=== PATIENT | female | born 1960 | race African-American/Black ===

== ENCOUNTER 2021-12-07 06:04 | Emergency (ER) | payer BC ==
[~2021-12-07] VITALS: Ht 154.9 cm; Wt 51.0 kg
[2021-12-07] MEDS: ONDANSETRON HCL 4MG/2ML INJ IV STA ×2 (07:08→09:01)
[2021-12-07] MEDS: SODIUM CHLORIDE 0.9% 1,000 ML IV ONE (07:08)
[2021-12-07] MEDS: KETOROLAC 30MG/ML VIAL IV STA (07:08)
[2021-12-07 07:20] LABS: BASOPHILS % 0.3 % (0.0-2.0); HEMOGLOBIN. 16.7 g/dL (12.0-16.0); LYMPHOCYTES % 9.9 % (20.0-50.0); MEAN CORPUSCULAR HEMOGLOBIN 34.4 pg (28.0-32.0); MEAN PLATELET VOLUME 7.8 fl (7.4-10.4); MONOCYTES % 5.3 % (2.0-8.0); NEUTROPHILS % 84.5 % (40.0-76.0); PLATELET 219 x1000/uL (130-400); RED BLOOD CELL COUNT 4.85 mill/uL (4.2-5.4); RED CELL DISTRIBUTION WIDTH 14.1 % (11.6-14.6)
[2021-12-07 07:28] LABS: CHLORIDE 98 mEq/L (98-107)
[2021-12-07] MEDS: AMLODIPINE 5MG TABLET PO ONE (08:22)
[2021-12-07] MEDS: ONDANSETRON HCL 4MG/2ML INJ IV ONE (08:55)
[2021-12-07] MEDS: METRONIDAZOLE 500 MG PREMIX 100 ML IV ONE (09:34)
[2021-12-07] MEDS: MORPHINE SULFATE 4 MG/ML CPJ (NOT FOR IM USE) IV STA (09:34)
[2021-12-07] MEDS: CEFTRIAXONE 1 G PREMIX 50 ML IV ONE (09:35)
[2021-12-07] MEDS ORDERED: T3 PO (11:13)
[2021-12-07] MEDS ORDERED: IBUP-2029 MT (11:13)
[2021-12-07] MEDS ORDERED: AMOX1TAB16 MT (11:13)
[2021-12-07] MEDS ORDERED: METR-167 MT (11:13)
[2021-12-07 11:29] VITALS: BP 157/82
[2021-12-07 12:29] LABS: CLARITY URINE CLEAR (CLEAR); COLOR URINE YELLOW (YELLOW); KETONES URINE 1+ (NEGATIVE); LEUKOCYTE ESTERASE URINE NEGATIVE (NEGATIVE); NITRITE URINE NEGATIVE (NEGATIVE); OCCULT BLOOD URINE 3+ (NEGATIVE); PH URINE 7.5 (4.5-8.0); PROTEIN URINE 3+ (NEGATIVE); UROBILINOGEN URINE 0.2 E.U./dL (0.2-1.0)
== END 2021-12-07 11:32 | disposition home or self-care (01) ==
LOC: ER 06:04
DX: K57.92 Diverticulitis of intestine, part unspecified, without perforation or abscess without bleeding (principal); J44.1 Chronic obstructive pulmonary disease with (acute) exacerbation; J45.909 Unspecified asthma, uncomplicated; Z91.018 Allergy to other foods; Z98.890 Other specified postprocedural states
CPT/HCPCS: 36415; 74176; 80053; 81003; 83690; 85025; 87040; 93005; 96361; 96365; 96368; 96375; 96376; 99285; J0696; J1885; J2270; J2405; J3490; J7030; Z7610

== ENCOUNTER 2021-12-10 08:30 | Inpatient (IN) | payer BC ==
[~2021-12-10] VITALS: Ht 154.9 cm; Wt 51.7 kg
[~2021-12-10 08:30] MED LIST: AMOX1TAB16 MT; IBUP-2029 MT; METR-167 MT; T3 PO
[2021-12-10] MEDS ORDERED: MORPHINE SULFATE 4 MG/ML CPJ (NOT FOR IM USE) IV STA ×2 (08:46→10:22)
[2021-12-10] MEDS ORDERED: ONDANSETRON HCL 4MG/2ML INJ IV STA ×2 (08:46→10:22)
[2021-12-10] MEDS ORDERED: FAMOTIDINE 20MG/2ML VIAL IV STA (08:46)
[2021-12-10] MEDS ORDERED: SODIUM CHLORIDE 0.9% 1,000 ML IV ONE (09:00)
[2021-12-10 09:02] LABS: HEMATOCRIT. 45.9 % (36.0-48.0); HEMOGLOBIN. 15.4 g/dL (12.0-16.0); MEAN CORPUSCULAR HEMOGLOBIN 34.5 pg (28.0-32.0); MEAN CORPUSCULAR VOLUME 102.3 fL (81.0-99.0); MEAN PLATELET VOLUME 8.2 fl (7.4-10.4); PLATELET 187 x1000/uL (130-400); RED BLOOD CELL COUNT 4.48 mill/uL (4.2-5.4); RED CELL DISTRIBUTION WIDTH 13.9 % (11.6-14.6)
[2021-12-10 09:09] LABS: CHLORIDE 98 mEq/L (98-107)
[2021-12-10 09:21] LABS: ETHANOL BLOOD < 10 mg/dL
[2021-12-10 09:51] LABS: PLATELET ESTIMATE NORMAL
[2021-12-10] MEDS ORDERED: KCL 20MEQ/100ML PREMIX 100 ML IV ONE (10:00)
[2021-12-10] MEDS ORDERED: POTASSIUM CHLORIDE 20MEQ/PACKET PO ONE (10:30)
[2021-12-10 11:00] LABS: CLARITY URINE CLEAR (CLEAR); COLOR URINE DARK YELLOW (YELLOW); KETONES URINE NEGATIVE (NEGATIVE); LEUKOCYTE ESTERASE URINE TRACE (NEGATIVE); NITRITE URINE NEGATIVE (NEGATIVE); OCCULT BLOOD URINE NEGATIVE (NEGATIVE); PROTEIN URINE TRACE (NEGATIVE); SPECIFIC GRAVITY URINE 1.017 (1.005-1.030); UROBILINOGEN URINE 0.2 E.U./dL (0.2-1.0)
[2021-12-10] MEDS ORDERED: PIPERACILLIN/TAZ 3.375G PREMIX 50 ML IV ONE (11:00)
[2021-12-10 11:16] LABS: *AMPHETAMINES SCREEN URINE NEGATIVE (NEGATIVE); *BARBITURATES SCREEN URINE NEGATIVE (NEGATIVE); *BENZODIAZEPINES SCREEN URINE NEGATIVE (NEGATIVE); *COCAINE SCREEN URINE NEGATIVE (NEGATIVE); CANNABINOID URINE SCREEN NEGATIVE (NEGATIVE); METHADONE URINE SCREEN NEGATIVE (NEGATIVE); OPIATES URINE SCREEN PRESUMTIVE POSITIVE (NEGATIVE); PHENCYCLIDINE URINE SCREEN NEGATIVE (NEGATIVE)
[2021-12-10] MEDS ORDERED: CLONIDINE 0.1MG TABLET PO PRN (12:30)
[2021-12-10] MEDS ORDERED: LORAZEPAM 1MG TABLET PO PRN (12:30)
[2021-12-10] MEDS ORDERED: ONDANSETRON HCL 4MG/2ML INJ IV PRN (12:30)
[2021-12-10] MEDS ORDERED: ACETAMINOPHEN 325MG TABLET PO PRN (12:30)
[2021-12-10] MEDS: DEXT 5%/0.45% NACL KCL 20MEQ/L 1,000 ML IV SCH (12:30)
[2021-12-10] MEDS: CLOPIDOGREL 75MG TABLET PO SCH (13:39)
[2021-12-10] MEDS: AMLODIPINE 5MG TABLET PO SCH (13:39)
[2021-12-10] MEDS: METRONIDAZOLE 500 MG PREMIX 100 ML IV SCH ×2 (14:02→15:08)
[2021-12-10] MEDS: IPRATROPIUM/ALBUTEROL 0.5-3(2.5)MG/3ML NEB HHN SCH ×2 (14:22→17:55)
[2021-12-10] MEDS ORDERED: METOCLOPRAMIDE HCL 10MG/2ML VIAL IV PRN (17:00)
[2021-12-10] MEDS ORDERED: DIPHENHYDRAMINE 50MG/ML VIAL IV PRN (17:00)
[2021-12-10] MEDS ORDERED: SIMETHICONE 80MG TABLET CHEW PO PRN (17:00)
[2021-12-10 17:15] LABS: TOTAL IRON BINDING CAPACITY 297 ug/dL (250-450)
[2021-12-10] MEDS: MORPHINE SULFATE 2 MG/ML CPJ (NOT FOR IM USE) IV PRN (17:28)
[2021-12-10] MEDS: PIPERACILLIN/TAZOBACTAM 3.375GM/50ML PREMIX IV SCH (18:00)
[2021-12-10 20:26] LABS: HEPATITIS B SURFACE ANTIGEN NEGATIVE
[2021-12-10 20:40] VITALS: BP 119/71
[2021-12-10] MEDS: RISPERIDONE 1MG TABLET PO SCH (22:02)
[2021-12-10] MEDS: TRAZODONE HCL 50MG TABLET PO SCH (22:02)
[2021-12-11] VITALS: BP 103/62
[2021-12-11] MEDS: PIPERACILLIN/TAZOBACTAM 3.375GM/50ML PREMIX IV SCH (01:00)
[2021-12-11] MEDS: DEXT 5%/0.45% NACL KCL 20MEQ/L 1,000 ML IV SCH ×3 (02:24→21:00)
[2021-12-11 04:00] VITALS: BP 100/69
[2021-12-11 05:47] LABS: CHLORIDE 107 mEq/L (98-107)
[2021-12-11] MEDS: METRONIDAZOLE 500 MG PREMIX 100 ML IV SCH ×3 (05:53→21:46)
[2021-12-11 06:21] LABS: BASOPHILS % 0.7 % (0.0-2.0); EOSINOPHILS % 4.1 % (0.0-5.0); HEMATOCRIT. 41.3 % (36.0-48.0); HEMOGLOBIN. 13.8 g/dL (12.0-16.0); LYMPHOCYTES % 35.5 % (20.0-50.0); MEAN CORPUSCULAR HEMOGLOBIN 34.1 pg (28.0-32.0); MEAN CORPUSCULAR VOLUME 102.4 fL (81.0-99.0); MEAN PLATELET VOLUME 8.9 fl (7.4-10.4); MONOCYTES % 8.4 % (2.0-8.0); NEUTROPHILS % 51.3 % (40.0-76.0); PLATELET 168 x1000/uL (130-400); RED BLOOD CELL COUNT 4.04 mill/uL (4.2-5.4); RED CELL DISTRIBUTION WIDTH 13.8 % (11.6-14.6)
[2021-12-11 08:00] VITALS: BP 116/75
[2021-12-11] MEDS: AMLODIPINE 5MG TABLET PO SCH (08:47)
[2021-12-11] MEDS: CLOPIDOGREL 75MG TABLET PO SCH (08:47)
[2021-12-11] MEDS: PANTOPRAZOLE SODIUM 40 MG/VIAL IV SCH (08:48)
[2021-12-11] MEDS: MORPHINE SULFATE 2 MG/ML CPJ (NOT FOR IM USE) IV PRN ×4 (08:53→21:56)
[2021-12-11] MEDS: RISPERIDONE 1MG TABLET PO SCH ×2 (09:00→21:45)
[2021-12-11] MEDS: PIPERACILLIN/TAZOBACTAM 3.375G in DEXT 5% WATER 50ML IV SCH ×3 (11:14→21:46)
[2021-12-11 12:00] VITALS: BP 96/54
[2021-12-11] MEDS: VANCOMYCIN 1000MG/20ML ORAL SOLN PO SCH ×3 (15:13→23:14)
[2021-12-11 16:00] VITALS: BP 108/69
[2021-12-11] MEDS: TRAZODONE HCL 50MG TABLET PO SCH (21:44)
[2021-12-11] MEDS: LORAZEPAM 2MG/ML CPJ IV PRN (23:12)
[2021-12-12] VITALS: BP 101/84
[2021-12-12] MEDS: PSYLLIUM SEED PACKET PO SCH ×4 (02:28→16:48)
[2021-12-12 04:00] VITALS: BP 105/58
[2021-12-12 05:46] LABS: BASOPHILS % 0.6 % (0.0-2.0); EOSINOPHILS % 6.3 % (0.0-5.0); HEMATOCRIT. 38.8 % (36.0-48.0); HEMOGLOBIN. 12.4 g/dL (12.0-16.0); MEAN CORPUSCULAR HEMOGLOBIN 33.1 pg (28.0-32.0); MEAN CORPUSCULAR VOLUME 103.8 fL (81.0-99.0); MEAN PLATELET VOLUME 8.9 fl (7.4-10.4); MONOCYTES % 7.4 % (2.0-8.0); NEUTROPHILS % 52.7 % (40.0-76.0); PLATELET 165 x1000/uL (130-400); RED BLOOD CELL COUNT 3.74 mill/uL (4.2-5.4)
[2021-12-12 05:54] LABS: CHLORIDE 111 mEq/L (98-107)
[2021-12-12] MEDS: METRONIDAZOLE 500 MG PREMIX 100 ML IV SCH ×3 (06:30→20:43)
[2021-12-12] MEDS: PIPERACILLIN/TAZOBACTAM 3.375G in DEXT 5% WATER 50ML IV SCH ×3 (06:30→20:43)
[2021-12-12] MEDS: VANCOMYCIN 1000MG/20ML ORAL SOLN PO SCH ×4 (06:32→23:17)
[2021-12-12 08:00] VITALS: BP 118/62
[2021-12-12] MEDS: PANTOPRAZOLE SODIUM 40 MG/VIAL IV SCH (09:54)
[2021-12-12] MEDS: AMLODIPINE 5MG TABLET PO SCH (09:54)
[2021-12-12] MEDS: CLOPIDOGREL 75MG TABLET PO SCH (09:54)
[2021-12-12] MEDS: MORPHINE SULFATE 2 MG/ML CPJ (NOT FOR IM USE) IV PRN ×4 (09:54→20:43)
[2021-12-12] MEDS: IPRATROPIUM/ALBUTEROL 0.5-3(2.5)MG/3ML NEB HHN SCH ×3 (10:58→21:29)
[2021-12-12] MEDS: LORAZEPAM 2MG/ML CPJ IV PRN (11:33)
[2021-12-12 12:00] VITALS: BP 110/64
[2021-12-12] MEDS: DEXT 5%/0.45% NACL KCL 20MEQ/L 1,000 ML IV SCH (15:03)
[2021-12-12 16:00] VITALS: BP 137/83
[2021-12-12 20:00] VITALS: BP 113/60
[2021-12-12] MEDS: RISPERIDONE 1MG TABLET PO SCH (20:42)
[2021-12-12] MEDS: TRAZODONE HCL 50MG TABLET PO SCH (20:42)
[2021-12-13] VITALS: BP 105/52
[2021-12-13] MEDS: MORPHINE SULFATE 2 MG/ML CPJ (NOT FOR IM USE) IV PRN ×3 (03:34→09:17)
[2021-12-13 04:00] VITALS: BP 132/77
[2021-12-13] MEDS: VANCOMYCIN 1000MG/20ML ORAL SOLN PO SCH (06:02)
[2021-12-13] MEDS: METRONIDAZOLE 500 MG PREMIX 100 ML IV SCH (06:03)
[2021-12-13] MEDS: DEXT 5%/0.45% NACL KCL 20MEQ/L 1,000 ML IV SCH (06:03)
[2021-12-13] MEDS: PIPERACILLIN/TAZOBACTAM 3.375G in DEXT 5% WATER 50ML IV SCH (06:03)
[2021-12-13 06:08] LABS: BASOPHILS % 0.6 % (0.0-2.0); EOSINOPHILS % 6.8 % (0.0-5.0); HEMATOCRIT. 37.6 % (36.0-48.0); HEMOGLOBIN. 12.4 g/dL (12.0-16.0); LYMPHOCYTES % 22.3 % (20.0-50.0); MEAN CORPUSCULAR HEMOGLOBIN 33.7 pg (28.0-32.0); MEAN CORPUSCULAR VOLUME 102.5 fL (81.0-99.0); MONOCYTES % 8.6 % (2.0-8.0); NEUTROPHILS % 61.7 % (40.0-76.0); PLATELET 178 x1000/uL (130-400); RED BLOOD CELL COUNT 3.67 mill/uL (4.2-5.4); RED CELL DISTRIBUTION WIDTH 13.4 % (11.6-14.6)
[2021-12-13 06:29] LABS: CHLORIDE 109 mEq/L (98-107)
[2021-12-13] MEDS: IPRATROPIUM/ALBUTEROL 0.5-3(2.5)MG/3ML NEB HHN SCH (07:54)
[2021-12-13 08:00] VITALS: BP 112/62
[2021-12-13] MEDS: CLOPIDOGREL 75MG TABLET PO SCH (09:16)
[2021-12-13] MEDS: AMLODIPINE 5MG TABLET PO SCH (09:16)
[2021-12-13] MEDS: PSYLLIUM SEED PACKET PO SCH (09:16)
[2021-12-13] MEDS: PANTOPRAZOLE SODIUM 40 MG/VIAL IV SCH (09:16)
[2021-12-13 10:50] VITALS: BP 112/62
[2021-12-13 17:19] LABS: VITAMIN B12 SERUM 478 pg/mL (211-911)
[2021-12-16 04:07] LABS: OVA & PARASITE EXAM Final report (.)
== END 2021-12-13 11:54 | disposition home or self-care (01) | DRG 372 ==
LOC: ER 08:30 → EDBEDREQSVC 08:58 → EDBEDREQTM 08:58 → EDBEDREQ 08:59 → EDBEDREQSVC 10:37 → EDBEDREQ 10:37 → EDBEDREQTM 10:37 → ENRESERV 19:02 → 6WST 21:58
PROVIDERS: ADMIT Internal Medicine Endocrinology, Diabetes & Metabolism; ATTEND Internal Medicine Endocrinology, Diabetes & Metabolism
DX: A04.72 Enterocolitis due to Clostridium difficile, not specified as recurrent (principal); K57.92 Diverticulitis of intestine, part unspecified, without perforation or abscess without bleeding; N17.9 Acute kidney failure, unspecified; E86.0 Dehydration; E87.6 Hypokalemia; F32.9 Major depressive disorder, single episode, unspecified; I25.10 Atherosclerotic heart disease of native coronary artery without angina pectoris; J44.9 Chronic obstructive pulmonary disease, unspecified; M19.90 Unspecified osteoarthritis, unspecified site; M06.9 Rheumatoid arthritis, unspecified; I10 Essential (primary) hypertension; E78.5 Hyperlipidemia, unspecified; D25.9 Leiomyoma of uterus, unspecified; E04.9 Nontoxic goiter, unspecified; R73.9 Hyperglycemia, unspecified; F17.210 Nicotine dependence, cigarettes, uncomplicated; D53.9 Nutritional anemia, unspecified; Z88.8 Allergy status to other drugs, medicaments and biological substances; Z79.1 Long term (current) use of non-steroidal anti-inflammatories (NSAID); Z79.899 Other long term (current) drug therapy; Z95.5 Presence of coronary angioplasty implant and graft
CPT/HCPCS: 36415; 74022; 80048; 80053; 80305; 80320; 80359; 81003; 82533; 82607; 82746; 83540; 83550; 83735; 83880; 84443; 85025; 86705; 86709; 86803; 87015; 87045; 87177; 87209; 87340; 87427; 87449; 87493; 89055; 94640; 99291; C9113; J2060; J2270; J2405; J2543; J3370; J3480; J3490; J7030; J7060; G0480

== ENCOUNTER 2022-01-18 09:10 | Inpatient (IN) | payer BC ==
[~2022-01-18] VITALS: Ht 154.9 cm; Wt 49.9 kg
[2022-01-18] MEDS ORDERED: ONDANSETRON HCL 4MG/2ML INJ IV ONE (10:30)
[2022-01-18] MEDS ORDERED: MORPHINE SULFATE 4 MG/ML CPJ (NOT FOR IM USE) IV STA (10:31)
[2022-01-18 10:42] LABS: BASOPHILS % 0.4 % (0.0-2.0); EOSINOPHILS % 0.3 % (0.0-5.0); HEMATOCRIT. 50.3 % (36.0-48.0); HEMOGLOBIN. 17.2 g/dL (12.0-16.0); LYMPHOCYTES % 21.2 % (20.0-50.0); MEAN CORPUSCULAR HEMOGLOBIN 34.7 pg (28.0-32.0); MEAN CORPUSCULAR VOLUME 101.6 fL (81.0-99.0); MEAN PLATELET VOLUME 8.2 fl (7.4-10.4); MONOCYTES % 10.6 % (2.0-8.0); NEUTROPHILS % 67.5 % (40.0-76.0); PLATELET 313 x1000/uL (130-400); RED BLOOD CELL COUNT 4.95 mill/uL (4.2-5.4); RED CELL DISTRIBUTION WIDTH 14.5 % (11.6-14.6)
[2022-01-18] MEDS ORDERED: SODIUM CHLORIDE 0.9% 1000ML BAG (SEPSIS BOLUS) IV ONE (10:45)
[2022-01-18 10:48] LABS: CHLORIDE 95 mEq/L (98-107)
[2022-01-18 10:57] LABS: CREATINE KINASE 314 IU/L (26-192); ETHANOL BLOOD < 10 mg/dL
[2022-01-18] MEDS ORDERED: POTASSIUM CHLORIDE 20MEQ TABLET SR PO NR (12:30)
[2022-01-18] MEDS ORDERED: MORPHINE SULFATE 4 MG/ML CPJ (NOT FOR IM USE) IV ONE (13:30)
[2022-01-18 16:00] VITALS: BP 170/105
[2022-01-18 17:15] VITALS: BP 170/108
[2022-01-18] MEDS ORDERED: AMLO5TAB88 MT (17:55)
[2022-01-18] MEDS ORDERED: CYPR4SYR PO (17:56)
[2022-01-18] MEDS ORDERED: CLOP-31 PO (17:57)
[2022-01-18] MEDS ORDERED: ASPI-1497 PO (17:57)
[2022-01-18] MEDS ORDERED: PRAV20TA57 PO (17:58)
[2022-01-18] MEDS ORDERED: LORA-250 MT (17:59)
[2022-01-18] MEDS ORDERED: HYDR-4009 MT (18:00)
[2022-01-18] MEDS ORDERED: RISP2 PO (18:01)
[2022-01-18] MEDS ORDERED: TRAZ-252 MT (18:01)
[2022-01-18] MEDS ORDERED: CHOL200010 (18:02)
[2022-01-18] MEDS ORDERED: CLONIDINE 0.1MG TABLET PO PRN (19:00)
[2022-01-18] MEDS ORDERED: ACETAMINOPHEN 325MG TABLET PO PRN (19:00)
[2022-01-18] MEDS: AMLODIPINE 5MG TABLET PO SCH (19:00)
[2022-01-18] MEDS ORDERED: SIMETHICONE 80MG TABLET CHEW PO PRN (19:00)
[2022-01-18] MEDS ORDERED: ONDANSETRON HCL 4MG/2ML INJ IV PRN (19:00)
[2022-01-18] MEDS ORDERED: LORAZEPAM 2MG/ML CPJ IV PRN (19:00)
[2022-01-18] MEDS: SODIUM CHL 0.9% + KCL 20MEQ/L 1,000 ML IV SCH (19:18)
[2022-01-18] MEDS ORDERED: NALOXONE HCL 0.4MG/ML VIAL IV PRN (19:30)
[2022-01-18 20:00] VITALS: BP 108/78
[2022-01-18] MEDS: FAMOTIDINE 20MG TABLET PO SCH (20:49)
[2022-01-18] MEDS: CLOPIDOGREL 75MG TABLET PO SCH (20:49)
[2022-01-18] MEDS: TRAZODONE HCL 50MG TABLET PO SCH (20:49)
[2022-01-18] MEDS: MORPHINE SULFATE 2 MG/ML CPJ (NOT FOR IM USE) IV PRN (20:51)
[2022-01-18] MEDS: RISPERIDONE 1MG TABLET PO SCH (21:02)
[2022-01-19] VITALS (7 sets, daily range): BP systolic 88–106; BP diastolic 54–71
[2022-01-19] MEDS: MORPHINE SULFATE 2 MG/ML CPJ (NOT FOR IM USE) IV PRN (03:02)
[2022-01-19] MEDS: SODIUM CHL 0.9% + KCL 20MEQ/L 1,000 ML IV SCH ×2 (08:17→21:15)
[2022-01-19] MEDS: CLOPIDOGREL 75MG TABLET PO SCH (08:19)
[2022-01-19] MEDS: AMLODIPINE 5MG TABLET PO SCH (08:19)
[2022-01-19] MEDS: AMLODIPINE 2.5MG TABLET PO SCH (09:00)
[2022-01-19] MEDS: ASPIRIN 81MG TABLET PO SCH (09:12)
[2022-01-19] MEDS: HYDROCODONE/ACETAMINOPHEN 10/325MG TABLET PO PRN ×3 (12:31→23:46)
[2022-01-19] MEDS: RISPERIDONE 1MG TABLET PO SCH (21:14)
[2022-01-19] MEDS: FAMOTIDINE 20MG TABLET PO SCH (21:14)
[2022-01-19] MEDS: TRAZODONE HCL 50MG TABLET PO SCH (21:15)
[2022-01-20 04:00] VITALS: BP 122/67
[2022-01-20 07:02] LABS: BASOPHILS % 0.9 % (0.0-2.0); EOSINOPHILS % 5.9 % (0.0-5.0); HEMATOCRIT. 35.6 % (36.0-48.0); HEMOGLOBIN. 11.9 g/dL (12.0-16.0); LYMPHOCYTES % 33.7 % (20.0-50.0); MEAN CORPUSCULAR HEMOGLOBIN 34.2 pg (28.0-32.0); MEAN CORPUSCULAR VOLUME 102.4 fL (81.0-99.0); MONOCYTES % 7.2 % (2.0-8.0); NEUTROPHILS % 52.3 % (40.0-76.0); PLATELET 218 x1000/uL (130-400); RED BLOOD CELL COUNT 3.47 mill/uL (4.2-5.4); RED CELL DISTRIBUTION WIDTH 14.2 % (11.6-14.6)
[2022-01-20 08:00] VITALS: BP 129/78
[2022-01-20 08:01] LABS: CHLORIDE 110 mEq/L (98-107)
[2022-01-20] MEDS: IPRATROPIUM/ALBUTEROL 0.5-3(2.5)MG/3ML NEB HHN SCH ×2 (08:33→12:04)
[2022-01-20] MEDS: ASPIRIN 81MG TABLET PO SCH (08:35)
[2022-01-20] MEDS: AMLODIPINE 2.5MG TABLET PO SCH (08:35)
[2022-01-20] MEDS: HYDROCODONE/ACETAMINOPHEN 10/325MG TABLET PO PRN (08:35)
[2022-01-20] MEDS ORDERED: CLOPIDOGREL 75MG TABLET PO SCH (09:00)
[2022-01-20] MEDS: SODIUM CHL 0.9% + KCL 20MEQ/L 1,000 ML IV SCH (10:34)
[2022-01-20] MEDS ORDERED: AMLO2.5T2 PO (11:42)
[2022-01-20 11:43] VITALS: BP 113/61
[2022-01-20 12:00] VITALS: BP 113/61
[2022-01-27 09:11] LABS: RENIN ACTIVITY PLASMA 0.708 ng/mL/hr (0.167-5.380)
[2022-01-28 15:06] LABS: METANEPHRINE PLASMA 43.7 pg/mL (0.0-88.0)
== END 2022-01-20 14:00 | disposition home or self-care (01) | DRG 74 ==
LOC: ER 09:47 → 8WST 13:55 → EDBEDREQTM 13:59 → EDBEDREQ 13:59 → ENRESERV 15:49
PROVIDERS: ADMIT Internal Medicine Endocrinology, Diabetes & Metabolism; ATTEND Internal Medicine Endocrinology, Diabetes & Metabolism
DX: G90.9 Disorder of the autonomic nervous system, unspecified (principal); E87.20 Acidosis, unspecified; I16.9 Hypertensive crisis, unspecified; R71.0 Precipitous drop in hematocrit; R55 Syncope and collapse; D25.9 Leiomyoma of uterus, unspecified; E04.9 Nontoxic goiter, unspecified; E11.65 Type 2 diabetes mellitus with hyperglycemia; E78.5 Hyperlipidemia, unspecified; E86.0 Dehydration; E87.6 Hypokalemia; F17.210 Nicotine dependence, cigarettes, uncomplicated; F32.9 Major depressive disorder, single episode, unspecified; G89.29 Other chronic pain; I10 Essential (primary) hypertension; I25.10 Atherosclerotic heart disease of native coronary artery without angina pectoris; K57.90 Diverticulosis of intestine, part unspecified, without perforation or abscess without bleeding; J44.9 Chronic obstructive pulmonary disease, unspecified; M06.9 Rheumatoid arthritis, unspecified; R09.89 Other specified symptoms and signs involving the circulatory and respiratory systems; I25.2 Old myocardial infarction; Z96.651 Presence of right artificial knee joint; Z79.02 Long term (current) use of antithrombotics/antiplatelets; Z79.899 Other long term (current) drug therapy; Z79.82 Long term (current) use of aspirin; Z80.41 Family history of malignant neoplasm of ovary; Z83.2 Family history of diseases of the blood and blood-forming organs and certain disorders involving the immune mechanism; Z91.018 Allergy to other foods
CPT/HCPCS: 36415; 71045; 74176; 80048; 80053; 80320; 82088; 82533; 82550; 83036; 83605; 83835; 83880; 84244; 84443; 84484; 85025; 85651; 93005; 93306; 93880; 99285; J2270; J2405; J3480; J7030; G0480

== ENCOUNTER 2022-03-17 05:52 | Inpatient (IN) | payer BC ==
[~2022-03-17] VITALS: Ht 154.9 cm; Wt 47.6 kg
[~2022-03-17 05:52] MED LIST changes: +AMLO2.5T2 PO; -AMOX1TAB16 MT; +ASPI-1497 PO; +CHOL200010; +CLOP-31 PO; +CYPR4SYR PO; +HYDR-4009 MT; -IBUP-2029 MT; +LORA-250 MT; -METR-167 MT; +PRAV20TA57 PO; +RISP2 PO; -T3 PO; +TRAZ-252 MT
[2022-03-17] MEDS ORDERED: ONDANSETRON HCL 4MG/2ML INJ IV STA (06:19)
[2022-03-17] MEDS ORDERED: KETOROLAC 30MG/ML VIAL IV STA (06:19)
[2022-03-17] MEDS ORDERED: SODIUM CHLORIDE 0.9% 1,000 ML IV ONE (06:30)
[2022-03-17 06:58] LABS: BASOPHILS % 0.3 % (0.0-2.0); EOSINOPHILS % 0.1 % (0.0-5.0); HEMATOCRIT. 52.9 % (36.0-48.0); LYMPHOCYTES % 12.3 % (20.0-50.0); MEAN CORPUSCULAR HEMOGLOBIN 34.6 pg (28.0-32.0); MEAN CORPUSCULAR VOLUME 101.6 fL (81.0-99.0); MEAN PLATELET VOLUME 8.2 fl (7.4-10.4); MONOCYTES % 6.7 % (2.0-8.0); NEUTROPHILS % 80.6 % (40.0-76.0); PLATELET 243 x1000/uL (130-400); RED BLOOD CELL COUNT 5.21 mill/uL (4.2-5.4); RED CELL DISTRIBUTION WIDTH 14.5 % (11.6-14.6)
[2022-03-17 07:04] LABS: CHLORIDE 92 mEq/L (98-107)
[2022-03-17 07:27] LABS: HCG SCREEN INDETERMINATE
[2022-03-17] MEDS ORDERED: SODIUM CHLORIDE 0.9% 1000ML BAG (SEPSIS BOLUS) IV ONE (08:45)
[2022-03-17 11:34] LABS: CLARITY URINE CLOUDY (CLEAR); COLOR URINE YELLOW (YELLOW); KETONES URINE 2+ (NEGATIVE); LEUKOCYTE ESTERASE URINE NEGATIVE (NEGATIVE); NITRITE URINE NEGATIVE (NEGATIVE); OCCULT BLOOD URINE 3+ (NEGATIVE); PH URINE 7.5 (4.5-8.0); PROTEIN URINE 4+ (NEGATIVE)
[2022-03-17] MEDS: HYDRALAZINE 20MG/ML VIAL IV PRN (11:52)
[2022-03-17] MEDS ORDERED: AMLODIPINE 5MG TABLET PO NR (12:30)
[2022-03-17] MEDS: DEXT 5%/0.45% NACL KCL 20MEQ/L 1,000 ML IV SCH (13:30)
[2022-03-17 17:30] VITALS: BP 138/86
[2022-03-17] MEDS ORDERED: HYDROCODONE/ACETAMINOPHEN 10/325MG TABLET PO PRN (18:45)
[2022-03-17] MEDS ORDERED: ONDANSETRON HCL 4MG/2ML INJ IV PRN (18:45)
[2022-03-17] MEDS ORDERED: LORAZEPAM 2MG/ML CPJ IV PRN (18:45)
[2022-03-17] MEDS ORDERED: NALOXONE HCL 0.4MG/ML VIAL IV PRN (19:00)
[2022-03-17 20:00] VITALS: BP 176/99
[2022-03-17] MEDS: AMLODIPINE 5MG TABLET PO SCH (20:42)
[2022-03-17] MEDS ORDERED: ATORVASTATIN CALCIUM 10MG TABLET PO SCH (21:00)
[2022-03-17] MEDS ORDERED: IPRATROPIUM/ALBUTEROL 0.5-3(2.5)MG/3ML NEB HHN SCH (22:00)
[2022-03-18] VITALS: BP 171/84
[2022-03-18] MEDS: IPRATROPIUM BROMIDE (0.02%) 0.5MG/2.5ML NEB HHN SCH ×2 (00:30→09:25)
[2022-03-18] MEDS: ALBUTEROL (0.083%) 2.5MG/3ML NEB HHN SCH ×2 (00:31→09:25)
[2022-03-18] MEDS: HYDRALAZINE 20MG/ML VIAL IV PRN (01:03)
[2022-03-18] MEDS: DEXT 5%/0.45% NACL KCL 20MEQ/L 1,000 ML IV SCH (02:51)
[2022-03-18 04:00] VITALS: BP 156/86
[2022-03-18] MEDS ORDERED: ASPIRIN 81MG EC TABLET PO SCH (05:00)
[2022-03-18 06:41] LABS: BASOPHILS % 0.4 % (0.0-2.0); EOSINOPHILS % 0.3 % (0.0-5.0); HEMATOCRIT. 48.2 % (36.0-48.0); HEMOGLOBIN. 16.4 g/dL (12.0-16.0); LYMPHOCYTES % 21.8 % (20.0-50.0); MEAN CORPUSCULAR HEMOGLOBIN 34.8 pg (28.0-32.0); MEAN CORPUSCULAR VOLUME 102.6 fL (81.0-99.0); MEAN PLATELET VOLUME 8.1 fl (7.4-10.4); NEUTROPHILS % 68.5 % (40.0-76.0); PLATELET 215 x1000/uL (130-400); RED CELL DISTRIBUTION WIDTH 14.6 % (11.6-14.6)
[2022-03-18 06:47] LABS: CHLORIDE 103 mEq/L (98-107)
[2022-03-18 07:28] LABS: VITAMIN B12 SERUM 384 pg/mL (211-911)
[2022-03-18 08:00] VITALS: BP 135/65
[2022-03-18] MEDS: AMLODIPINE 5MG TABLET PO SCH (08:49)
[2022-03-18] MEDS ORDERED: CLOPIDOGREL 75MG TABLET PO SCH (09:00)
[2022-03-18 10:41] VITALS: BP 135/65
== END 2022-03-18 11:15 | disposition home or self-care (01) | DRG 392 ==
LOC: ER 06:07 → 7EST 08:30 → EDBEDREQ 08:35 → EDBEDREQTM 08:35 → ENRESERV 16:22
PROVIDERS: ADMIT Internal Medicine Endocrinology, Diabetes & Metabolism; ATTEND Internal Medicine Endocrinology, Diabetes & Metabolism
DX: K52.9 Noninfective gastroenteritis and colitis, unspecified (principal); E87.1 Hypo-osmolality and hyponatremia; E87.20 Acidosis, unspecified; E86.0 Dehydration; E87.6 Hypokalemia; K57.90 Diverticulosis of intestine, part unspecified, without perforation or abscess without bleeding; R00.0 Tachycardia, unspecified; D25.9 Leiomyoma of uterus, unspecified; D75.89 Other specified diseases of blood and blood-forming organs; E04.9 Nontoxic goiter, unspecified; E78.5 Hyperlipidemia, unspecified; E83.52 Hypercalcemia; E88.09 Other disorders of plasma-protein metabolism, not elsewhere classified; F17.210 Nicotine dependence, cigarettes, uncomplicated; F32.9 Major depressive disorder, single episode, unspecified; I10 Essential (primary) hypertension; Z96.651 Presence of right artificial knee joint; R31.9 Hematuria, unspecified; R73.9 Hyperglycemia, unspecified; I25.10 Atherosclerotic heart disease of native coronary artery without angina pectoris; Z20.822 Contact with and (suspected) exposure to COVID-19; I25.2 Old myocardial infarction; J44.9 Chronic obstructive pulmonary disease, unspecified; M06.9 Rheumatoid arthritis, unspecified; Z63.4 Disappearance and death of family member; Z79.02 Long term (current) use of antithrombotics/antiplatelets; Z79.82 Long term (current) use of aspirin; Z80.41 Family history of malignant neoplasm of ovary; Z81.8 Family history of other mental and behavioral disorders; Z82.5 Family history of asthma and other chronic lower respiratory diseases; Z83.2 Family history of diseases of the blood and blood-forming organs and certain disorders involving the immune mechanism; Z95.5 Presence of coronary angioplasty implant and graft
CPT/HCPCS: 36415; 71045; 74176; 80048; 80053; 81003; 82607; 83605; 83735; 84443; 84484; 84702; 84703; 85025; 87426; 93005; 94640; 99285; J0360; J1885; J2405; J7030

== ENCOUNTER 2022-04-14 19:36 | Emergency (ER) | payer BC ==
[~2022-04-14] VITALS: Ht 154.9 cm; Wt 50.0 kg
[2022-04-14 19:46] VITALS: BP 162/75
[2022-04-14] MEDS ORDERED: NITROGLYCERIN OINT 1GM/INCH UDPKT TD ONE (20:00)
[2022-04-14] MEDS ORDERED: ASPIRIN 81MG TABLET PO ONE (20:00)
[2022-04-14 22:09] LABS: BASOPHILS % 0.6 % (0.0-2.0); EOSINOPHILS % 3.8 % (0.0-5.0); HEMATOCRIT. 47.8 % (36.0-48.0); HEMOGLOBIN. 15.9 g/dL (12.0-16.0); LYMPHOCYTES % 24.2 % (20.0-50.0); MEAN CORPUSCULAR HEMOGLOBIN 34.6 pg (28.0-32.0); MEAN CORPUSCULAR VOLUME 104.2 fL (81.0-99.0); MEAN PLATELET VOLUME 8.4 fl (7.4-10.4); MONOCYTES % 8.2 % (2.0-8.0); NEUTROPHILS % 63.2 % (40.0-76.0); PLATELET 233 x1000/uL (130-400); RED BLOOD CELL COUNT 4.59 mill/uL (4.2-5.4); RED CELL DISTRIBUTION WIDTH 14.2 % (11.6-14.6)
[2022-04-14 22:14] LABS: CHLORIDE 105 mEq/L (98-107)
[2022-04-14] MEDS ORDERED: POTASSIUM CHLORIDE 20MEQ TABLET SR PO NR (22:30)
[2022-04-14] MEDS ORDERED: ACETAMINOPHEN 325MG TABLET PO ONE (23:00)
== END 2022-04-14 23:26 | disposition home or self-care (01) ==
LOC: ER 19:36
DX: S93.691A Other sprain of right foot, initial encounter (principal); R07.9 Chest pain, unspecified; E87.6 Hypokalemia; I25.10 Atherosclerotic heart disease of native coronary artery without angina pectoris; J44.9 Chronic obstructive pulmonary disease, unspecified; I10 Essential (primary) hypertension; M19.90 Unspecified osteoarthritis, unspecified site; W01.0XXA Fall on same level from slipping, tripping and stumbling without subsequent striking against object, initial encounter; Y92.9 Unspecified place or not applicable; Z79.82 Long term (current) use of aspirin; Z98.61 Coronary angioplasty status; Z91.018 Allergy to other foods; Z96.659 Presence of unspecified artificial knee joint
CPT/HCPCS: 36415; 71045; 73630; 80053; 84484; 85025; 93005; 99285; Z7610

== ENCOUNTER 2022-05-09 16:41 | Emergency (ER) | payer BC ==
[~2022-05-09] VITALS: Ht 152.4 cm; Wt 60.0 kg
[2022-05-09 17:06] VITALS: BP 208/104
[2022-05-09] MEDS ORDERED: MORPHINE SULFATE 4 MG/ML CPJ (NOT FOR IM USE) IV STA (17:10)
[2022-05-09] MEDS ORDERED: ONDANSETRON HCL 4MG/2ML INJ IV STA (17:10)
[2022-05-09] MEDS ORDERED: SODIUM CHLORIDE 0.9% 1,000 ML IV ONE (17:15)
[2022-05-09 18:12] LABS: CLARITY URINE CLEAR (CLEAR); COLOR URINE YELLOW (YELLOW); KETONES URINE 1+ (NEGATIVE); LEUKOCYTE ESTERASE URINE NEGATIVE (NEGATIVE); NITRITE URINE NEGATIVE (NEGATIVE); OCCULT BLOOD URINE 3+ (NEGATIVE); PH URINE 6.5 (4.5-8.0); PROTEIN URINE 3+ (NEGATIVE); SPECIFIC GRAVITY URINE 1.015 (1.005-1.030); UROBILINOGEN URINE 0.2 E.U./dL (0.2-1.0)
[2022-05-09 19:12] LABS: BASOPHILS % 0.4 % (0.0-2.0); EOSINOPHILS % 0.4 % (0.0-5.0); HEMATOCRIT. 45.9 % (36.0-48.0); HEMOGLOBIN. 15.3 g/dL (12.0-16.0); LYMPHOCYTES % 13.7 % (20.0-50.0); MEAN CORPUSCULAR HEMOGLOBIN 34.3 pg (28.0-32.0); MEAN CORPUSCULAR VOLUME 102.9 fL (81.0-99.0); MEAN PLATELET VOLUME 9.6 fl (7.4-10.4); MONOCYTES % 5.8 % (2.0-8.0); NEUTROPHILS % 79.7 % (40.0-76.0); PLATELET 228 x1000/uL (130-400); RED BLOOD CELL COUNT 4.46 mill/uL (4.2-5.4); RED CELL DISTRIBUTION WIDTH 14.7 % (11.6-14.6)
[2022-05-09 20:45] LABS: CHLORIDE 104 mEq/L (98-107)
[2022-05-09] MEDS ORDERED: ONDA4TAB50 MT (20:48)
[2022-05-09] MEDS ORDERED: ONDANSETRON HCL 4MG/2ML INJ IV ONE (21:00)
== END 2022-05-09 22:31 | disposition home or self-care (01) ==
LOC: ER 16:41
DX: R11.2 Nausea with vomiting, unspecified (principal); J44.9 Chronic obstructive pulmonary disease, unspecified; I10 Essential (primary) hypertension; M19.90 Unspecified osteoarthritis, unspecified site; Z96.659 Presence of unspecified artificial knee joint; Z91.018 Allergy to other foods
CPT/HCPCS: 36415; 74176; 80053; 81003; 83690; 85025; 96361; 96374; 96375; 96376; 99285; J2270; J2405; J7030; Z7610

== ENCOUNTER 2022-05-11 11:34 | Emergency (ER) | payer BC ==
[~2022-05-11] VITALS: Ht 154.9 cm; Wt 49.0 kg
[~2022-05-11 11:34] MED LIST changes: +ONDA4TAB50 MT
[2022-05-11] MEDS ORDERED: MORPHINE SULFATE 4 MG/ML CPJ (NOT FOR IM USE) IV STA (14:24)
[2022-05-11] MEDS ORDERED: FAMOTIDINE 20MG/2ML VIAL IV STA (14:24)
[2022-05-11] MEDS ORDERED: SODIUM CHLORIDE 0.9% 1,000 ML IV ONE (14:30)
[2022-05-11 15:39] LABS: BASOPHILS % 0.6 % (0.0-2.0); EOSINOPHILS % 0.5 % (0.0-5.0); HEMATOCRIT. 48.8 % (36.0-48.0); HEMOGLOBIN. 16.2 g/dL (12.0-16.0); LYMPHOCYTES % 26.8 % (20.0-50.0); MEAN CORPUSCULAR HEMOGLOBIN 33.9 pg (28.0-32.0); MEAN CORPUSCULAR VOLUME 102.3 fL (81.0-99.0); MONOCYTES % 11.8 % (2.0-8.0); NEUTROPHILS % 60.3 % (40.0-76.0); RED BLOOD CELL COUNT 4.77 mill/uL (4.2-5.4); RED CELL DISTRIBUTION WIDTH 14.5 % (11.6-14.6)
[2022-05-11 16:04] VITALS: BP 140/78
[2022-05-11 16:08] LABS: CLARITY URINE TURBID (CLEAR); COLOR URINE DARK YELLOW (YELLOW); KETONES URINE TRACE (NEGATIVE); LEUKOCYTE ESTERASE URINE 1+ (NEGATIVE); NITRITE URINE NEGATIVE (NEGATIVE); OCCULT BLOOD URINE 3+ (NEGATIVE); PROTEIN URINE 4+ (NEGATIVE); SPECIFIC GRAVITY URINE 1.032 (1.005-1.030)
[2022-05-11 16:51] LABS: MEAN PLATELET VOLUME 8.8 fl (7.4-10.4); PLATELET 197 x1000/uL (130-400)
[2022-05-11 16:52] LABS: PLATELET ESTIMATE NORMAL
[2022-05-11] MEDS ORDERED: CEFTRIAXONE 1 G PREMIX 50 ML IV NR (17:00)
[2022-05-11] MEDS ORDERED: CEPH500T MT (17:23)
[2022-05-11] MEDS ORDERED: ONDA4TAB50 MT (17:23)
[2022-05-11 18:03] LABS: CHLORIDE 101 mEq/L (98-107)
== END 2022-05-11 19:53 | disposition left against medical advice (07) ==
LOC: ER 11:34
DX: R11.10 Vomiting, unspecified (principal); N39.0 Urinary tract infection, site not specified; N17.9 Acute kidney failure, unspecified; E86.0 Dehydration; J44.9 Chronic obstructive pulmonary disease, unspecified; I10 Essential (primary) hypertension; M19.90 Unspecified osteoarthritis, unspecified site; Z79.82 Long term (current) use of aspirin; Z91.018 Allergy to other foods; Z96.659 Presence of unspecified artificial knee joint
CPT/HCPCS: 36415; 80053; 81003; 83690; 85025; 93005; 96361; 96365; 96375; 99284; J0696; J2270; J3490; J7030

== ENCOUNTER 2022-06-20 12:09 | Inpatient (IN) | payer BC ==
[~2022-06-20] VITALS: Ht 152.4 cm; Wt 52.2 kg
[~2022-06-20 12:09] MED LIST changes: +CEPH500T MT
[2022-06-20 13:43] LABS: BASOPHILS % 0.3 % (0.0-2.0); EOSINOPHILS % 0.3 % (0.0-5.0); HEMATOCRIT. 47.8 % (36.0-48.0); HEMOGLOBIN. 15.6 g/dL (12.0-16.0); LYMPHOCYTES % 12.7 % (20.0-50.0); MEAN CORPUSCULAR HEMOGLOBIN 34.4 pg (28.0-32.0); MEAN CORPUSCULAR VOLUME 105.4 fL (81.0-99.0); MONOCYTES % 3.2 % (2.0-8.0); NEUTROPHILS % 83.5 % (40.0-76.0); RED BLOOD CELL COUNT 4.54 mill/uL (4.2-5.4); RED CELL DISTRIBUTION WIDTH 15.9 % (11.6-14.6)
[2022-06-20 14:12] LABS: PLATELET ESTIMATE NORMAL
[2022-06-20 14:13] LABS: MEAN PLATELET VOLUME 8.5 fl (7.4-10.4); PLATELET 197 x1000/uL (130-400)
[2022-06-20] MEDS ORDERED: ONDANSETRON HCL 4MG/2ML INJ IV ONE (14:15)
[2022-06-20 14:22] LABS: HCG SCREEN NEGATIVE
[2022-06-20 14:41] LABS: CHLORIDE 108 mEq/L (98-107)
[2022-06-20 15:14] LABS: CLARITY URINE CLEAR (CLEAR); COLOR URINE YELLOW (YELLOW); KETONES URINE 1+ (NEGATIVE); LEUKOCYTE ESTERASE URINE NEGATIVE (NEGATIVE); NITRITE URINE NEGATIVE (NEGATIVE); OCCULT BLOOD URINE 2+ (NEGATIVE); PROTEIN URINE 2+ (NEGATIVE); SPECIFIC GRAVITY URINE 1.016 (1.005-1.030); UROBILINOGEN URINE 0.2 E.U./dL (0.2-1.0)
[2022-06-20] MEDS ORDERED: KETOROLAC 15MG/ML VIAL IV ONE (15:15)
[2022-06-20] MEDS ORDERED: AMLODIPINE 5MG TABLET PO ONE (15:15)
[2022-06-20] MEDS ORDERED: METOCLOPRAMIDE HCL 10MG/2ML VIAL IV ONE (15:45)
[2022-06-20] MEDS ORDERED: METO-293 MT (15:59)
[2022-06-20] MEDS ORDERED: MAG-55 MT (15:59)
[2022-06-20] MEDS ORDERED: LABETALOL 5MG/ML SYR 20 MG/4 ML SYRINGE IV ONE (17:30)
[2022-06-20] MEDS ORDERED: MORPHINE SULFATE 4 MG/ML CPJ (NOT FOR IM USE) IV ONE (18:30)
[2022-06-20] MEDS ORDERED: DEXT 5%/0.45% NACL KCL 20MEQ/L 1,000 ML IV SCH (21:15)
[2022-06-20] MEDS ORDERED: NALOXONE HCL 0.4MG/ML VIAL IV PRN (21:30)
[2022-06-20] MEDS ORDERED: IPRATROPIUM/ALBUTEROL 0.5-3(2.5)MG/3ML NEB HHN PRN (21:30)
[2022-06-20] MEDS ORDERED: ACETAMINOPHEN 325MG TABLET PO PRN (21:30)
[2022-06-20] MEDS: HYDRALAZINE 20MG/ML VIAL IV SCH (21:58)
[2022-06-20 22:26] VITALS: BP 183/95
[2022-06-20 22:30] VITALS: BP 183/95
[2022-06-20] MEDS: ONDANSETRON HCL 4MG/2ML INJ IV PRN (23:10)
[2022-06-20] MEDS: MORPHINE SULFATE 2 MG/ML CPJ (NOT FOR IM USE) IV PRN (23:11)
[2022-06-20] MEDS: DEXT 5%/0.45% NACL KCL 20MEQ/L 1,000 ML IV SCH (23:39)
[2022-06-21] VITALS: BP 180/89
[2022-06-21] MEDS: MORPHINE SULFATE 2 MG/ML CPJ (NOT FOR IM USE) IV PRN (02:08)
[2022-06-21] MEDS: HYDRALAZINE 20MG/ML VIAL IV SCH ×4 (03:05→22:40)
[2022-06-21 04:15] VITALS: BP 160/90
[2022-06-21 06:40] LABS: BASOPHILS % 0.2 % (0.0-2.0); EOSINOPHILS % 0.1 % (0.0-5.0); HEMATOCRIT. 47.6 % (36.0-48.0); HEMOGLOBIN. 16.3 g/dL (12.0-16.0); LYMPHOCYTES % 7.9 % (20.0-50.0); MEAN CORPUSCULAR HEMOGLOBIN 34.6 pg (28.0-32.0); MEAN CORPUSCULAR VOLUME 101.2 fL (81.0-99.0); MEAN PLATELET VOLUME 8.2 fl (7.4-10.4); MONOCYTES % 9.4 % (2.0-8.0); NEUTROPHILS % 82.4 % (40.0-76.0); PLATELET 248 x1000/uL (130-400); RED CELL DISTRIBUTION WIDTH 15.7 % (11.6-14.6)
[2022-06-21] MEDS: ONDANSETRON HCL 4MG/2ML INJ IV PRN (07:11)
[2022-06-21 07:56] LABS: CHLORIDE 99 mEq/L (98-107)
[2022-06-21 08:09] LABS: T4 FREE 0.91 ng/dL (0.76-1.46)
[2022-06-21 08:15] VITALS: BP 140/71
[2022-06-21] MEDS: AMLODIPINE 5MG TABLET PO SCH ×2 (08:52→22:40)
[2022-06-21] MEDS: FAMOTIDINE 20MG/2ML VIAL IV SCH ×2 (08:53→22:36)
[2022-06-21] MEDS ORDERED: CEFTRIAXONE 1GM PREMIX 50 ML IV SCH (11:45)
[2022-06-21 12:15] VITALS: BP 157/92
[2022-06-21 12:50] LABS: *AMPHETAMINES SCREEN URINE NEGATIVE (NEGATIVE); *BARBITURATES SCREEN URINE NEGATIVE (NEGATIVE); *BENZODIAZEPINES SCREEN URINE NEGATIVE (NEGATIVE); *COCAINE SCREEN URINE NEGATIVE (NEGATIVE); CANNABINOID URINE SCREEN NEGATIVE (NEGATIVE); METHADONE URINE SCREEN NEGATIVE (NEGATIVE); OPIATES URINE SCREEN PRESUMTIVE POSITIVE (NEGATIVE); PHENCYCLIDINE URINE SCREEN NEGATIVE (NEGATIVE)
[2022-06-21] MEDS: CEFTRIAXONE 1,000 MG in DEXTROSE 5% WATER 50 ML IV SCH (14:35)
[2022-06-21] MEDS: DEXT 5%/0.45% NACL KCL 20MEQ/L 1,000 ML IV SCH (14:36)
[2022-06-21] MEDS: METRONIDAZOLE 500MG TABLET PO SCH ×2 (14:37→22:37)
[2022-06-21] MEDS: CLONIDINE 0.1MG TABLET PO SCH ×2 (14:49→22:00)
[2022-06-21 16:00] VITALS: BP 162/81
[2022-06-21] MEDS ORDERED: METOCLOPRAMIDE HCL 10MG/2ML VIAL IV PRN (16:45)
[2022-06-21 20:00] VITALS: BP 120/66
[2022-06-21] MEDS: RISPERIDONE 1MG TABLET PO SCH (22:36)
[2022-06-21] MEDS: LORAZEPAM 1MG TABLET PO PRN (22:36)
[2022-06-21] MEDS: TRAZODONE HCL 50MG TABLET PO SCH (22:37)
[2022-06-22] VITALS: BP 151/80
[2022-06-22] MEDS: DEXT 5%/0.45% NACL KCL 20MEQ/L 1,000 ML IV SCH ×2 (02:05→16:50)
[2022-06-22 04:15] VITALS: BP 131/79
[2022-06-22] MEDS: HYDRALAZINE 20MG/ML VIAL IV SCH ×4 (04:22→21:13)
[2022-06-22] MEDS: METRONIDAZOLE 500MG TABLET PO SCH ×3 (06:23→21:57)
[2022-06-22] MEDS: CLONIDINE 0.1MG TABLET PO SCH ×3 (06:23→21:56)
[2022-06-22] MEDS: ONDANSETRON HCL 4MG/2ML INJ IV PRN (06:30)
[2022-06-22 06:45] LABS: BASOPHILS % 0.4 % (0.0-2.0); EOSINOPHILS % 0.1 % (0.0-5.0); HEMOGLOBIN. 15.6 g/dL (12.0-16.0); LYMPHOCYTES % 14.8 % (20.0-50.0); MEAN CORPUSCULAR HEMOGLOBIN 34.1 pg (28.0-32.0); MEAN CORPUSCULAR VOLUME 104.7 fL (81.0-99.0); MEAN PLATELET VOLUME 8.2 fl (7.4-10.4); MONOCYTES % 10.7 % (2.0-8.0); PLATELET 205 x1000/uL (130-400); RED BLOOD CELL COUNT 4.58 mill/uL (4.2-5.4); RED CELL DISTRIBUTION WIDTH 16.1 % (11.6-14.6)
[2022-06-22 08:00] VITALS: BP 133/78
[2022-06-22] MEDS ORDERED: METOPROLOL TARTRATE 5MG/5ML VIAL IV SCH (09:15)
[2022-06-22] MEDS: AMLODIPINE 5MG TABLET PO SCH ×2 (09:39→21:14)
[2022-06-22] MEDS: FAMOTIDINE 20MG/2ML VIAL IV SCH ×2 (10:49→21:13)
[2022-06-22 12:00] VITALS: BP 117/60
[2022-06-22] MEDS: CEFTRIAXONE 1,000 MG in DEXTROSE 5% WATER 50 ML IV SCH (13:26)
[2022-06-22] MEDS: METOPROLOL TARTRATE 5MG/5ML VIAL IV SCH ×2 (14:59→21:00)
[2022-06-22 16:00] VITALS: BP 113/59
[2022-06-22 20:00] VITALS: BP 107/66
[2022-06-22] MEDS: TRAZODONE HCL 50MG TABLET PO SCH (21:12)
[2022-06-22] MEDS: RISPERIDONE 1MG TABLET PO SCH (21:13)
[2022-06-22] MEDS: LORAZEPAM 1MG TABLET PO PRN (21:57)
[2022-06-23] VITALS: BP 132/74
[2022-06-23] MEDS: METOPROLOL TARTRATE 5MG/5ML VIAL IV SCH ×2 (03:00→08:51)
[2022-06-23] MEDS: HYDRALAZINE 20MG/ML VIAL IV SCH ×2 (03:15→08:52)
[2022-06-23 04:00] VITALS: BP 127/67
[2022-06-23] MEDS: DEXT 5%/0.45% NACL KCL 20MEQ/L 1,000 ML IV SCH (04:35)
[2022-06-23] MEDS: METRONIDAZOLE 500MG TABLET PO SCH (06:19)
[2022-06-23] MEDS: CLONIDINE 0.1MG TABLET PO SCH (06:19)
[2022-06-23 06:51] LABS: BASOPHILS % 0.5 % (0.0-2.0); EOSINOPHILS % 0.4 % (0.0-5.0); HEMATOCRIT. 43.9 % (36.0-48.0); LYMPHOCYTES % 19.8 % (20.0-50.0); MEAN CORPUSCULAR HEMOGLOBIN 34.9 pg (28.0-32.0); MEAN CORPUSCULAR VOLUME 102.1 fL (81.0-99.0); MEAN PLATELET VOLUME 8.9 fl (7.4-10.4); MONOCYTES % 10.1 % (2.0-8.0); NEUTROPHILS % 69.2 % (40.0-76.0); PLATELET 212 x1000/uL (130-400); RED CELL DISTRIBUTION WIDTH 15.3 % (11.6-14.6)
[2022-06-23 08:00] VITALS: BP 128/82
[2022-06-23 08:07] LABS: CHLORIDE 104 mEq/L (98-107)
[2022-06-23] MEDS: FAMOTIDINE 20MG/2ML VIAL IV SCH (08:52)
[2022-06-23] MEDS: AMLODIPINE 5MG TABLET PO SCH (08:53)
[2022-06-23 09:34] LABS: PHOSPHORUS 2.4 mg/dL (2.5-4.9)
[2022-06-23] MEDS ORDERED: FAMOTIDINE 20MG TABLET PO NR (10:30)
[2022-06-23 10:56] VITALS: BP 134/86
[2022-06-24] MEDS ORDERED: FAMOTIDINE 20MG TABLET PO SCH (09:00)
== END 2022-06-23 11:49 | disposition home or self-care (01) | DRG 392 ==
LOC: ER 12:09 → 3WST 18:07 → EDBEDREQTM 18:09 → EDBEDREQSVC 18:09 → EDBEDREQ 18:09
PROVIDERS: ADMIT Internal Medicine Endocrinology, Diabetes & Metabolism; ATTEND Internal Medicine Endocrinology, Diabetes & Metabolism
DX: K57.32 Diverticulitis of large intestine without perforation or abscess without bleeding (principal); E87.1 Hypo-osmolality and hyponatremia; K29.70 Gastritis, unspecified, without bleeding; K52.9 Noninfective gastroenteritis and colitis, unspecified; I10 Essential (primary) hypertension; J44.9 Chronic obstructive pulmonary disease, unspecified; M06.9 Rheumatoid arthritis, unspecified; F32.9 Major depressive disorder, single episode, unspecified; E04.9 Nontoxic goiter, unspecified; E78.5 Hyperlipidemia, unspecified; Z96.651 Presence of right artificial knee joint; K62.1 Rectal polyp; I25.10 Atherosclerotic heart disease of native coronary artery without angina pectoris; F17.210 Nicotine dependence, cigarettes, uncomplicated; E88.09 Other disorders of plasma-protein metabolism, not elsewhere classified; E87.6 Hypokalemia; E86.0 Dehydration; D75.89 Other specified diseases of blood and blood-forming organs; D25.9 Leiomyoma of uterus, unspecified; I25.2 Old myocardial infarction; Z95.5 Presence of coronary angioplasty implant and graft; Z83.2 Family history of diseases of the blood and blood-forming organs and certain disorders involving the immune mechanism; Z79.899 Other long term (current) drug therapy; Z79.82 Long term (current) use of aspirin; Z91.018 Allergy to other foods
CPT/HCPCS: 36415; 74176; 76536; 80048; 80053; 80305; 81003; 82533; 83735; 84100; 84439; 84443; 84481; 84484; 84703; 85025; 93005; 93306; 93970; 99285; J0360; J0696; J1885; J2270; J2405; J2765; J3490; J7060

== ENCOUNTER 2022-07-09 07:58 | Emergency (ER) | payer BC ==
[~2022-07-09] VITALS: Ht 154.9 cm; Wt 50.0 kg
[~2022-07-09 07:58] MED LIST changes: -CLOP-31 PO; +MAG-55 MT; +METO-293 MT
[2022-07-09 10:14] LABS: BASOPHILS % 0.6 % (0.0-2.0); EOSINOPHILS % 0.1 % (0.0-5.0); HEMATOCRIT. 52.1 % (36.0-48.0); HEMOGLOBIN. 17.7 g/dL (12.0-16.0); LYMPHOCYTES % 10.8 % (20.0-50.0); MEAN CORPUSCULAR HEMOGLOBIN 34.7 pg (28.0-32.0); MEAN CORPUSCULAR VOLUME 102.5 fL (81.0-99.0); MEAN PLATELET VOLUME 8.5 fl (7.4-10.4); MONOCYTES % 3.9 % (2.0-8.0); NEUTROPHILS % 84.6 % (40.0-76.0); PLATELET 292 x1000/uL (130-400); RED BLOOD CELL COUNT 5.08 mill/uL (4.2-5.4); RED CELL DISTRIBUTION WIDTH 15.9 % (11.6-14.6)
[2022-07-09 10:15] LABS: CHLORIDE 99 mEq/L (98-107)
[2022-07-09] MEDS ORDERED: HALOPERIDOL LACTATE 5MG/ML VIAL IM ONE (11:15)
[2022-07-09] MEDS ORDERED: FAMOTIDINE 20MG/2ML VIAL IV ONE (11:15)
[2022-07-09] MEDS ORDERED: METOCLOPRAMIDE HCL 10MG/2ML VIAL IV ONE (11:15)
[2022-07-09] MEDS ORDERED: SODIUM CHLORIDE 0.9% 1,000 ML IV ONE (11:15)
[2022-07-09] MEDS ORDERED: KETOROLAC 15MG/ML VIAL IV ONE (11:15)
[2022-07-09] MEDS ORDERED: ONDANSETRON HCL 4MG/2ML INJ IV ONE (12:30)
[2022-07-09] MEDS ORDERED: METOPROLOL TARTRATE 25MG TABLET PO ONE (12:30)
[2022-07-09] MEDS ORDERED: AMLODIPINE 5MG TABLET PO ONE (12:30)
[2022-07-09] MEDS ORDERED: LABETALOL 5MG/ML SYR 20 MG/4 ML SYRINGE IV ONE (14:15)
[2022-07-09 14:46] VITALS: BP 198/107
== END 2022-07-09 16:18 | disposition left against medical advice (07) ==
LOC: ER 08:12 → CANBEDREQ 17:02
DX: R10.9 Unspecified abdominal pain (principal); R11.2 Nausea with vomiting, unspecified; J44.9 Chronic obstructive pulmonary disease, unspecified; I10 Essential (primary) hypertension; F12.10 Cannabis abuse, uncomplicated; Z79.899 Other long term (current) drug therapy
CPT/HCPCS: 36415; 80053; 83690; 85025; 96372; 96374; 96375; 99284; J1630; J1885; J2405; J2765; J3490; J7030; Z7610

== ENCOUNTER 2022-07-18 12:14 | Emergency (ER) | payer BC ==
[~2022-07-18] VITALS: Ht 154.9 cm; Wt 47.0 kg
[2022-07-18] MEDS ORDERED: KETOROLAC 30MG/ML VIAL IV ONE (13:45)
[2022-07-18] MEDS ORDERED: SODIUM CHLORIDE 0.9% 1,000 ML IV ONE (13:45)
[2022-07-18] MEDS ORDERED: FAMOTIDINE 20MG/2ML VIAL IV ONE (13:45)
[2022-07-18] MEDS ORDERED: ONDANSETRON HCL 4MG/2ML INJ IV ONE (13:45)
[2022-07-18 13:51] LABS: BASOPHILS % 0.8 % (0.0-2.0); HEMATOCRIT. 45.6 % (36.0-48.0); MEAN CORPUSCULAR HEMOGLOBIN 35.4 pg (28.0-32.0); MEAN CORPUSCULAR VOLUME 107.5 fL (81.0-99.0); MEAN PLATELET VOLUME 8.2 fl (7.4-10.4); MONOCYTES % 9.6 % (2.0-8.0); NEUTROPHILS % 58.6 % (40.0-76.0); PLATELET 191 x1000/uL (130-400); RED BLOOD CELL COUNT 4.25 mill/uL (4.2-5.4); RED CELL DISTRIBUTION WIDTH 15.6 % (11.6-14.6)
[2022-07-18 13:59] LABS: CHLORIDE 106 mEq/L (98-107)
[2022-07-18 14:17] LABS: CLARITY URINE CLOUDY (CLEAR); COLOR URINE YELLOW (YELLOW); KETONES URINE NEGATIVE (NEGATIVE); LEUKOCYTE ESTERASE URINE NEGATIVE (NEGATIVE); NITRITE URINE NEGATIVE (NEGATIVE); OCCULT BLOOD URINE NEGATIVE (NEGATIVE); PH URINE 6.5 (4.5-8.0); PROTEIN URINE 1+ (NEGATIVE); SPECIFIC GRAVITY URINE 1.019 (1.005-1.030)
[2022-07-18] MEDS ORDERED: DICYCLOMINE HCL 10MG CAPSULE PO ONE (15:15)
[2022-07-18] MEDS ORDERED: MORPHINE SULFATE 2 MG/ML CPJ (NOT FOR IM USE) IV ONE (16:45)
[2022-07-18] MEDS ORDERED: MORPHINE SULFATE 2 MG/ML CPJ (NOT FOR IM USE) IV NR (18:30)
[2022-07-18 19:00] VITALS: BP 151/91
== END 2022-07-18 19:41 | disposition home or self-care (01) ==
LOC: ER 12:14
DX: R11.2 Nausea with vomiting, unspecified (principal); R10.13 Epigastric pain; J44.9 Chronic obstructive pulmonary disease, unspecified; I10 Essential (primary) hypertension; Z79.899 Other long term (current) drug therapy
CPT/HCPCS: 36415; 71045; 74177; 80053; 81003; 83690; 84484; 85025; 93005; 96374; 96375; 99285; J1885; J2270; J2405; J3490; J7030; Z7610

== ENCOUNTER → 2022-09-02 | Outpatient (CLI) | payer BC ==
[2022-09-02 12:21] LABS: BASOPHILS % 0.6 % (0.0-2.0); EOSINOPHILS % 5.4 % (0.0-5.0); HEMATOCRIT. 44.8 % (36.0-48.0); HEMOGLOBIN. 14.6 g/dL (12.0-16.0); LYMPHOCYTES % 34.8 % (20.0-50.0); MEAN CORPUSCULAR HEMOGLOBIN 34.5 pg (28.0-32.0); MEAN CORPUSCULAR VOLUME 105.6 fL (81.0-99.0); MEAN PLATELET VOLUME 8.7 fl (7.4-10.4); MONOCYTES % 7.2 % (2.0-8.0); PLATELET 196 x1000/uL (130-400); RED BLOOD CELL COUNT 4.24 mill/uL (4.2-5.4); RED CELL DISTRIBUTION WIDTH 15.3 % (11.6-14.6)
[2022-09-02 12:32] LABS: CHLORIDE 109 mEq/L (98-107)
[2022-09-02 12:45] LABS: HDL CHOLESTEROL 67 mg/dL (40-59); LDL CHOLESTEROL 61 mg/dL (5-100); T4 FREE 0.97 ng/dL (0.76-1.46)
[2022-09-02 12:49] LABS: FOLIC ACID (FOLATE) SERUM 7.3 ng/mL (>5.38)
[2022-09-02 12:59] LABS: CORTISOL 7.8 ucg/dL
[2022-09-06 13:06] LABS: METHYLMALONIC ACID 201 nmol/L (0-378)
== END | disposition home or self-care (01) ==
LOC: LAB 11:04
PROVIDERS: ATTEND Internal Medicine Endocrinology, Diabetes & Metabolism
DX: I10 Essential (primary) hypertension (principal); E11.9 Type 2 diabetes mellitus without complications; E78.5 Hyperlipidemia, unspecified; D75.89 Other specified diseases of blood and blood-forming organs
CPT/HCPCS: 36415; 80053; 80061; 82088; 82533; 82746; 83036; 83880; 83921; 84244; 84439; 84443; 85025

== ENCOUNTER → 2022-09-02 | Outpatient (CLI) | payer BC | END | disposition home or self-care (01) | LOC: LAB 11:00 | PROVIDERS: ATTEND Internal Medicine | DX: M05.70 Rheumatoid arthritis with rheumatoid factor of unspecified site without organ or systems involvement (principal) | CPT/HCPCS: 36415; 85651; 86140 ==

== ENCOUNTER 2022-11-26 15:14 | Emergency (ER) | payer BC ==
[~2022-11-26] VITALS: Ht 154.9 cm; Wt 63.0 kg
[2022-11-26 15:27] VITALS: BP 210/114; PULSE 114; RESP 20; TEMP 98.1; O2SAT 97
[2022-11-26 17:25] LABS: BASOPHILS % 0.4 % (0.0-2.0); HEMATOCRIT. 49.3 % (36.0-48.0); HEMOGLOBIN. 16.5 g/dL (12.0-16.0); LYMPHOCYTES % 9.6 % (20.0-50.0); MEAN CORPUSCULAR HEMOGLOBIN 34.1 pg (28.0-32.0); MEAN CORPUSCULAR HGB CONC 33.4 g/dL (31.0-37.0); MEAN CORPUSCULAR VOLUME 102.1 fL (81.0-99.0); MEAN PLATELET VOLUME 8.4 fl (7.4-10.4); PLATELET 211 x1000/uL (130-400); RED BLOOD CELL COUNT 4.83 mill/uL (4.2-5.4); RED CELL DISTRIBUTION WIDTH 14.2 % (11.6-14.6); WHITE BLOOD COUNT 6.8 x1000/uL (4.5-11.0)
[2022-11-26 17:29] LABS: DIFFERENTIAL COMMENT 1
[2022-11-26 17:35] LABS: CHLORIDE 106 mEq/L (98-107); INDEX HEMOLYSI 1 (1-3); INDEX ICTERIC 1 (1-4); INDEX LIPEMIC 1 (1-3); POTASSIUM 3.3 mEq/L (3.5-5.1); SODIUM 140 mEq/L (136-145)
[2022-11-26 17:42] LABS: ALANINE AMINOTRANSFERASE 27 IU/L (13-61); ALBUMIN 4.2 g/dL (3.4-5.0); ASPARTATE AMINOTRANSFERASE 20 IU/L (15-37); BILIRUBIN TOTAL 0.3 mg/dL (0.1-1.0); CALCIUM 10.1 mg/dL (8.5-10.1); CARBON DIOXIDE 28 mEq/L (21-32); CREATININE 0.6 mg/dL (0.6-1.3); GLUCOSE 136 mg/dL (70-105); PROTEIN TOTAL 9.2 g/dL (6.0-8.3); UREA NITROGEN BLOOD 6 mg/dL (7-21)
== END 2022-11-26 19:33 | disposition left against medical advice (07) ==
LOC: ER 15:14
DX: R11.2 Nausea with vomiting, unspecified (principal); Z53.21 Procedure and treatment not carried out due to patient leaving prior to being seen by health care provider
CPT/HCPCS: 36415; 80053; 85025; 99281